=== PATIENT | female | born 1950 | race American Indian/Alaskan Native ===

== ENCOUNTER 2016-06-30 08:01 | Outpatient (CLI) | payer MEDICAID ==
--- NOTE | 2016-06-30 10:17 | Mammography Report ---
BILATERAL DIGITAL SCREENING MAMMOGRAM with CAD : 06/30/16 08:01:00 CLINICAL: Routine screening. COMPARISON:01/12/13 FINDINGS: The breasts are heterogeneously dense, which may obscure small masses.A predominantly fat density mass in the outer right breast is not significantly changed. It has the typical appearance of a benign hamartoma. No other mass, architectural distortion or suspicious calcifications. IMPRESSION: No mammographic evidence of malignancy. BI-RADS CATEGORY: 2 -- Benign RECOMMENDATION: Routine mammographic screening in one year. COMMENT: Patient follow-up letters are generated by our [employer] application.
== END 2016-06-30 08:02 | disposition home or self-care (01) ==
LOC: SPVWC 08:01
PROVIDERS: ATTEND General Practice
DX: Z12.31 Encounter for screening mammogram for malignant neoplasm of breast (principal)
CPT/HCPCS: 77067; G0202

== ENCOUNTER 2021-09-14 20:17 | Inpatient (IN) | payer MEDICARE ==
[2021-09-14] MEDS ORDERED: ONDANSETRON 4 MG/2 ML INJ IV ONE (21:37)
[2021-09-14] MEDS ORDERED: fentaNYL 100 MCG/2 ML INJ IV ONE (21:37)
[2021-09-14] MEDS ORDERED: NITROGLYCERIN 2% OINT 1 GM TP ONE (21:38)
[2021-09-14] MEDS ORDERED: ASPIRIN 325 MG TAB PO ONE (21:38)
--- NOTE | 2021-09-14 21:42 | Emergency Department Report ---
HPI - General Chief Complaint: Chest Pain Time Seen by Provider: 09/14/21 21:29 - [facility] HPI: Room 20 The patient is a 71-year-old female present with chief complaint of chest pain. Patient states symptoms began yesterday with substernal chest pain that is sharp in nature and constant. Patient mitts to shortness of breath, nausea/vomiting and diaphoresis associated with chest pain. Patient currently gives her chest pain a score of 8/10. Patient admits to pleurisy but denies any recent flights/long car trips. Patient states her last stress test occurred over 5 years ago and she's never had a cardiac catheterization ED Past Medical Hx - Past Medical History Hx Diabetes: Yes (Type II) - Surgical History Additional Surgical History: Right ankle fracture repair - Family History Family history: no significant - Social History Smoking Status: Former Smoker (None x10 years) Substance Use Type: Alcohol (Occasional), Marijuana ED Review of Systems ROS: Stated complaint: RICHIE PAIN, NAUSEA, VOMITING Other details as noted in HPI Constitutional: diaphoresis Eyes: denies: eye pain ENT: denies: throat pain Respiratory: shortness of breath Cardiovascular: chest pain Endocrine: no symptoms reported Gastrointestinal: nausea, vomiting Genitourinary: denies: dysuria Musculoskeletal: denies: back pain Neurological: denies: headache Physical Exam - Physical Exam Vital Signs: Vital Signs 09/14/21 21:18 Temperature 98.6 F Pulse Rate 75 Respiratory 16 Rate Blood Pressure 155/89 [Right] O2 Sat by Pulse 99 Oximetry Physical Exam: GENERAL: The patient is well-developed well-nourished female lying on stretcher not appearing to be in acute distress but holding emesis bag with small amount of emesis present HEENT: Normocephalic. Atraumatic. Extraocular motions are intact. Patient has moist mucous membranes. NECK: Supple. Trachea midline CHEST/LUNGS: Clear to auscultation. There is no respiratory distress noted. HEART/CARDIOVASCULAR: Regular. There is no tachycardia. There is no gallop rub or murmur. ABDOMEN: Abdomen is soft, nontender. Patient has normal bowel sounds. There is no abdominal distention. SKIN: There is no rash. There is no edema. There is no diaphoresis. NEURO: The patient is awake, alert, and oriented. The patient is cooperative. The patient has no focal neurologic deficits. The patient has normal speech. GCS 15 MUSCULOSKELETAL: There is no evidence of acute injury. ED Course Vital Signs 09/14/21 21:18 Temperature 98.6 F Pulse Rate 75 Respiratory 16 Rate Blood Pressure 155/89 [Right] O2 Sat by Pulse 99 Oximetry ED Medical Decision Making - Lab Data Result diagrams: 09/14/21 22:26 09/14/21 22:26 - EKG Data -: EKG Interpreted by Mn EKG shows normal: sinus rhythm Rate: normal - EKG Data When compared to previous EKG there are: previous EKG unavailable Interpretation: nonspecific ST-T wave lidia (Flattened T waves leads III, V2) - Radiology Data Radiology results: report reviewed (CT chest), image reviewed (CT chest) [facility] [address] [place] [address] Cat Scan Report Signed Patient: KATERINE DOWNEY MR#: [id number] : 1950 Acct:[id number] Age/Sex: 71 / F ADM Date: 09/14/21 Loc: ED Attending Dr: Ordering Physician: FLORENCIO EDOUARD MD Date of Service: 09/14/21 Procedure(s): CT angio chest Accession Number(s): [id number] cc: FLORENCIO EDOUARD MD CT angio chest INDICATION / CLINICAL INFORMATION: Chest pain. TECHNIQUE: Axial CT images were obtained through the chest after injection of 100 cc of Omnipaque 350 IV contrast. 3 plane MIP and/or 3D reconstructions were produced. All CT scans at this location are performed using CT dose reduction for ALARA by means of automated exposure control. COMPARISON: None available. FINDINGS: PULMONARY ARTERIES: No central or segmental pulmonary embolus. THORACIC AORTA: No significant abnormality. HEART: No significant abnormality. CORONARY ARTERY CALCIFICATION: No significant calcification. LYMPHADENOPATHY: No significant thoracic lymphadenopathy. LUNGS/PLEURA: No acute interstitial or airspace disease. No pleural effusion or pneumothorax. OTHER FINDINGS: There is fluid extending to the mid thoracic esophagus. No significant wall thickening. UPPER ABDOMEN: No acute findings. SKELETAL SYSTEM: No acute osseous findings. IMPRESSION: 1. No acute findings in the chest. No evidence of pulmonary embolism. 2. Fluid in the mid to distal esophagus, nonspecific but may reflect gastroesophageal reflux or esophageal dysmotility. Signer Name: Daja Escalante MD Signed: 09/15/2021 3:09 AM Workstation Name: [id number] Transcribed By: JS Dictated By: DAJA ESCALANTE MD Electronically Authenticated By: DAJA ESCALANTE MD Signed Date/Time: 09/15/21308 DD/ 3 TD/TT: - Differential Diagnosis ACS, pericarditis, GERD, costochondritis, pleurisy Critical care attestation.: If time is entered above; I have spent that time in minutes in the direct care of this critically ill patient, excluding procedure time. ED Disposition Clinical Impression: Chest pain Disposition: ADMITTED INPATIENT Is pt being admited?: Yes Does the pt Need Aspirin: Yes Condition: Fair Instructions: Nonspecific Chest Pain, Adult Time of Disposition: 03:17 (Care transferred to hospitalist (Dr. Richey)) Heart Score - HEART Score History: Moderately suspicious EKG: Non-specific Age: > 65 Risk factors: 1-2 risk factors Troponin: < normal limit HEART Score: 5 - EKG Read Time Time EKG Completed: 21:18 EKG Read Time: 21:41
[2021-09-14 23:18] LABS: Basophils # (Auto) 0.1 K/mm3 (0.0-0.1); Basophils % (Auto) 0.8 % (0.0-1.8); Eosinophils % (Auto) 0.1 % (0.0-4.3); Hematocrit 42.2 % (30.3-42.9); Hemoglobin 13.8 gm/dl (10.1-14.3); Lymphocytes # (Auto) 0.8 K/mm3 (1.2-5.4); Lymphocytes % (Auto) 8.1 % (13.4-35.0); Mean Corpuscular HGB Conc 33 % (30-34); Mean Corpuscular Volume 94 fl (79-97); Monocytes # (Auto) 0.2 K/mm3 (0.0-0.8); Monocytes % (Auto) 1.6 % (0.0-7.3); Platelet Count 229 K/mm3 (140-440); Red Blood Count 4.51 M/mm3 (3.65-5.03); Red Cell Distribution Width 13.5 % (13.2-15.2)
[2021-09-14 23:23] LABS: Creatine Kinase MB 1.5 ng/mL (0.0-4.0)
[2021-09-14 23:26] LABS: Alanine Aminotransferase 17 units/L (7-56); Albumin 4.4 g/dL (3.9-5); Blood Urea Nitrogen 14 mg/dL (7-17); Calcium 9.8 mg/dL (8.4-10.2); Hemolysis Index 64
[2021-09-14 23:27] LABS: BUN/Creatinine Ratio 23
[2021-09-14] MEDS ORDERED: MORPHINE 4 MG/1 ML INJ IV ONE (23:29)
--- NOTE | 2021-09-15 03:13 | Cat Scan Report ---
CT angio chest INDICATION / CLINICAL INFORMATION: Chest pain. TECHNIQUE: Axial CT images were obtained through the chest after injection of 100 cc of Omnipaque 350 IV contrast. 3 plane MIP and/or 3D reconstructions were produced. All CT scans at this location are performed using CT dose reduction for ALARA by means of automated exposure control. COMPARISON: None available. FINDINGS: PULMONARY ARTERIES: No central or segmental pulmonary embolus. THORACIC AORTA: No significant abnormality. HEART: No significant abnormality. CORONARY ARTERY CALCIFICATION: No significant calcification. LYMPHADENOPATHY: No significant thoracic lymphadenopathy. LUNGS/PLEURA: No acute interstitial or airspace disease. No pleural effusion or pneumothorax. OTHER FINDINGS: There is fluid extending to the mid thoracic esophagus. No significant wall thickenin g. UPPER ABDOMEN: No acute findings. SKELETAL SYSTEM: No acute osseous findings. IMPRESSION: 1. No acute findings in the chest. No evidence of pulmonary embolism. 2. Fluid in the mid to distal esophagus, nonspecific but may reflect gastroesophageal reflux or esoph ageal dysmotility. Signer Name: Karan Escalante MD Signed: 09/15/2021 3:09 AM Workstation Name: [id number]
[2021-09-15] MEDS ORDERED: fentaNYL 100 MCG/2 ML INJ IV ONE (03:21)
[2021-09-15] MEDS ORDERED: SODIUM CHLORIDE 0.45% 1000 ML 1,000 ML IV SCH (05:00)
--- NOTE | 2021-09-15 05:04 | History and Physical Report ---
History of Present Illness Date of examination: 09/15/21 Date of admission: 09/15/21 Chief complaint: Chest pain History of present illness: 71-year-old female with history of diabetes was brought to the emergency room because of chest pain. Patient states symptoms began yesterday with substernal chest pain that is sharp in nature and constant. Patient mitts to shortness of breath, nausea/vomiting and diaphoresis associated with chest pain. Patient currently gives her chest pain a score of 8/10. Patient admits to pleurisy but denies any recent flights/long car trips. Patient states her last stress test occurred over 5 years ago and she's never had a cardiac catheterization In the emergency room initial cardiac enzyme is negative troponin is 0.010. Ch est CTA shows no acute finding in the chest. No evidence of pulmonary embolism. Fluid in the mid to distal esophagus, nonspecific but may reflect gastroesophageal reflux or esophageal dysmotility Past History Past Medical History: diabetes Past Surgical History: Other ( Right ankle fracture repair) Social history: other (Former Smoker (None x10 years)) Family history: diabetes Medications and Allergies Allergies Allergy/AdvReac Type Severity Reaction Status Date / Time No Known Allergies Allergy Unverified 09/14/21 21:20 Review of Systems All systems: negative Cardiovascular: chest pain, shortness of breath, dyspnea on exertion Gastrointestinal: nausea, vomiting Exam - Constitutional Vitals: Temp Pulse Resp BP Pulse Ox 98.2 F 69 16 173/95 98 09/15/21 04:44 09/15/21 04:31 09/15/21 04:31 09/15/21 04:31 09/15/21 04:31 General appearance: Present: no acute distress, well-nourished - EENT Eyes: Present: PERRL ENT: hearing intact, clear oral mucosa - Neck Neck: Present: supple, normal ROM - Respiratory Respiratory effort: normal Respiratory: bilateral: CTA - Cardiovascular Heart Sounds: Present: S1 & S2. Absent: rub, click - Extremities Extremities: pulses symmetrical, No edema Peripheral Pulses: within normal limits - Abdominal General gastrointestinal: Present: soft, non-tender, non-distended, normal bowel sounds Female genitourinary: Present: normal - Integumentary Integumentary: Present: clear, warm, dry - Musculoskeletal Musculoskeletal: gait normal, strength equal bilaterally - Psychiatric Psychiatric: appropriate mood/affect, intact judgment & insight - Neurologic Neurologic: CNII-XII intact, moves all extremities HEART Score - HEART Score EKG: Non-specific Age: > 65 Risk factors: 1-2 risk factors Troponin: Troponin T < 0.010 ng/mL (0.00-0.029) 09/14/21: Troponin: < normal limit Results - Labs CBC & Chem 7: 09/14/21 22:26 09/14/21 22: Labs: Laboratory Last Values WBC 10.5 K/mm3 (4.5-11.0) 09/14/21 22: RBC 4.51 M/mm3 (3.65-5.03) 09/14/21: Hgb 13.8 gm/dl (10.1-14.3) 09/14/21: Hct 42.2 % (30.3-42.9) 09/14/21: MCV 94 fl (79-97) 09/14/21 22: MCH 31 pg (28-32) 09/14/21: MCHC 33 % (30-34) 09/14/21: RDW 13.5 % (13.2-15.2) 09/14/21: Plt Count 229 K/mm3 (140-440) 09/14/21 22: Lymph % (Auto) 8.1 % (13.4-35.0) L 09/14/21: [place] % (Auto) 1.6 % (0.0-7.3) 09/14/21: Eos % (Auto) 0.1 % (0.0-4.3) 09/14/21: Baso % (Auto) 0.8 % (0.0-1.8) 09/14/21: Lymph # (Auto) 0.8 K/mm3 (1.2-5.4) L 09/14/21: [place] # (Auto) 0.2 K/mm3 (0.0-0.8) 09/14/21 22: Eos # (Auto) 0.0 K/mm3 (0.0-0.4) 09/14/21 22: Baso # (Auto) 0.1 K/mm3 (0.0-0.1) 09/14/21 22:26 Seg Neutrophils % 89.4 % (40.0-70.0) H 09/14/21 22:26 Seg Neutrophils # 9.4 K/mm3 (1.8-7.7) H 09/14/21 22:26 D-Dimer 273.84 ng/mlDDU (0-234) H 09/14/21 22:26 VBG pH 7.349 (7.320-7.420) 09/14/21 22:26 Sodium 145 mmol/L (137-145) 09/14/21 22:26 Potassium 4.0 mmol/L (3.6-5.0) 09/14/21 22:26 Chloride 105.7 mmol/L (98-107) 09/14/21 22:26 Carbon Dioxide 26 mmol/L (22-30) 09/14/21 22:26 Anion Gap 17 mmol/L 09/14/21 22:26 BUN 14 mg/dL (7-17) 09/14/21 22: Creatinine 0.6 mg/dL (0.6-1.2) 09/14/21 22:26 Estimated GFR > 60 ml/min 09/14/21 22:26 BUN/Creatinine Ratio 23 % 09/14/21 22:26 Glucose 228 mg/dL (65-100) H 09/14/21 22:26 Calcium 9.8 mg/dL (8.4-10.2) 09/14/21 22: Total Bilirubin 0.40 mg/dL (0.1-1.2) 09/14/21 22:26 AST 17 units/L (5-40) 09/14/21 22:26 ALT 17 units/L (7-56) 09/14/21 22:26 Alkaline Phosphatase 72 units/L (35-129) 09/14/21 22:26 Total Creatine Kinase 90 units/L (30-135) 09/14/21 22:26 CK-MB (CK-2) 1.5 ng/mL (0.0-4.0) 09/14/21 22: CK-MB (CK-2) Rel Index 1.6 (0-4) 09/14/21 22: Troponin T < 0.010 ng/mL (0.00-0.029) 09/14/21 22:26 NT-Pro-B Natriuret Pep 259.7 pg/mL (0-900) 09/14/21 22:26 Total Protein 8.0 g/dL (6.3-8.2) 09/14/21 22:26 Albumin 4.4 g/dL (3.9-5) 09/14/21 22:26 Albumin/Globulin Ratio 1.2 % 09/14/21 22:26 Lipase 17 units/L (13-60) 09/14/21 22:26 - Imaging and Cardiology CT scan - chest: report reviewed Assessment and Plan VTE prophylaxis?: Chemical Plan of care discussed with patient/family: Yes - Patient Problems (1) ACS (acute coronary syndrome) Current Visit: Yes Status: Acute Plan to address problem: Admit the patient to the medical telemetry. Aspirin 325 mg p.o. daily. Lipitor 40 mg p.o. daily. Nitroglycerin as needed. Serial cardiac enzymes. Lexiscan. Cardiology evaluation (2) GERD (gastroesophageal reflux disease) Current Visit: Yes Status: Acute Plan to address problem: Protonix 40 mg p.o. daily. Outpatient follow-up with GI for further evaluation (3) Diabetes 1.5, managed as type 2 Current Visit: Yes Status: Acute Plan to address problem: Accu-Chek every 6 hours with Humalog moderate dose coverage. Diabetic education. Recheck BMP in the morning (4) DVT prophylaxis Current Visit: Yes Status: Acute Plan to address problem: Heparin 5000 units subcu every 12 hours for DVT prophylaxis. Protonix 40 mg p.o. daily for GI prophylaxis. Patient is a full code
[2021-09-15] MEDS ORDERED: traMADol 50 MG TAB PO PRN (06:00)
[2021-09-15] MEDS ORDERED: ACETAMINOPHEN 325 MG TAB PO PRN (06:00)
[2021-09-15] MEDS ORDERED: DEXTROSE 50% IN WATER (25GM) 50 ML SYRINGE IV PRN (06:00)
[2021-09-15] MEDS ORDERED: INSULIN LISPRO 100 UNIT/ML SUB-Q SCH (06:00)
[2021-09-15] MEDS ORDERED: NITROGLYCERIN 0.4 MG TAB SUBL SL PRN (06:00)
[2021-09-15] MEDS ORDERED: MORPHINE 4 MG/1 ML INJ IV PRN (06:00)
[2021-09-15] MEDS ORDERED: HYDROmorphone 1 MG/1 ML INJ IV NR (06:58)
[2021-09-15] MEDS ORDERED: REGADENOSON 0.4 MG/5 ML INJ IV ONE (07:35)
[2021-09-15] MEDS ORDERED: ONDANSETRON 4 MG/2 ML INJ IV NR (09:40)
[2021-09-15] MEDS ORDERED: PANTOPRAZOLE 40 MG TAB PO SCH (10:00)
[2021-09-15] MEDS ORDERED: HEPARIN 5,000 UNIT/1 ML VIAL SUB-Q SCH (10:00)
[2021-09-15] MEDS ORDERED: ENOXAPARIN 30 MG/0.3 ML INJ SUB-Q SCH (10:00)
[2021-09-15] MEDS: ENOXAPARIN 40 MG/0.4 ML INJ SUB-Q SCH (10:36)
[2021-09-15] MEDS ORDERED: ONDANSETRON 4 MG/2 ML INJ IV PRN (11:04)
[2021-09-15] MEDS ORDERED: LISINOPRIL 20 MG TAB PO SCH (11:05)
[2021-09-15] MEDS: METOPROLOL TARTRATE 50 MG TAB PO SCH ×2 (13:22→22:14)
[2021-09-15] MEDS: LISINOPRIL 20 MG TAB PO SCH (13:22)
[2021-09-15] MEDS: INSULIN LISPRO 100 UNIT/ML SUB-Q SCH ×3 (13:23→22:15)
[2021-09-15] MEDS ORDERED: DEXTROSE 5% IN WATER 1,000 ML IV SCH (14:30)
--- NOTE | 2021-09-15 15:08 | Consultation ---
History of Present Illness Consult date: 09/15/21 Requesting physician: SUNNY MACIAS Consult reason: other (acs) History of present illness: Patient is 71-year-old female with a past medical history of diabetes and hypertension who came to the ED for complaint of chest pain and nausea and vomiting which started yesterday. At time of interview patient unable to describe nature or quality of chest pain and just reports that it is constant and does not describe any aggravating or relieving factors. She further reports that she has been very nauseous and vomiting. She does report history of GERD and pancreatitis. Initial cardiac enzymes are negative and CT shows fluid in the mid to distal esophagus which may reflect GERD or esophageal dysmotility. Patient is previously unknown to our practice. Cardiology is consulted for ACS. Past History Past Medical History: diabetes, hypertension Past Surgical History: Other ( Right ankle fracture repair) Social history: other (Former Smoker (None x10 years)) Family history: diabetes Medications and Allergies Allergies Allergy/AdvReac Type Severity Reaction Status Date / Time No Known Allergies Allergy Unverified 09/14/21 21:20 Home Medications Medication Instructions Recorded Confirmed Last Taken Type Loratadine [Claritin] 10 mg PO DAILY 09/15/21 09/15/21 Unknown History Metformin HCl [metFORMIN] 1,000 mg PO DAILY 09/15/21 09/15/21 Unknown History Omeprazole 40 mg PO DAILY 09/15/21 09/15/21 Unknown History Rosuvastatin Calcium [Crestor] 10 mg PO DAILY 09/15/21 09/15/21 Unknown History lisinopriL [Lisinopril] 20 mg PO DAILY 09/15/21 09/15/21 Unknown History Active Meds: Active Medications Acetaminophen (Acetaminophen 325 Mg Tab) 650 mg PO Q6H PRN PRN Reason: Pain, Mild (1-3) Aspirin (Aspirin Ec 81 Mg Tab) 81 mg PO QDAY RABIA Atorvastatin Calcium (Atorvastatin 40 Mg Tab) 40 mg PO QHS RABIA Atorvastatin Calcium (Atorvastatin 20 Mg Tab) 20 mg PO QHS RABIA Dextrose (Dextrose 50% In Water (25gm) 50 Ml Syringe) 50 ml IV Q30MIN PRN; Pro tocol PRN Reason: Hypoglycemia Enoxaparin Sodium (Enoxaparin 40 Mg/0.4 Ml Inj) 40 mg SUB-Q QDAY@1000 RABIA Last Admin: 09/15/21 10:36 Dose: 40 mg Dextrose (D5w) 1,000 mls @ 75 mls/hr IV DIRECT [facility] Insulin Human Lispro (Insulin Lispro 100 Unit/Ml) 0 unit SUB-Q ACHS [facility]; Protocol Last Admin: 09/15/21 13:23 Dose: 3 unit Lisinopril (Lisinopril 20 Mg Tab) 40 mg PO DAILY [facility] Last Admin: 09/15/21 13:22 Dose: 40 mg Metoprolol Tartrate (Metoprolol Tartrate 50 Mg Tab) 50 mg PO BID [facility] Last Admin: 09/15/21 13:22 Dose: 50 mg Morphine Sulfate (Morphine 4 Mg/1 Ml Inj) 2 mg IV Q5MIN PRN PRN Reason: Chest Pain unrelieved by NTG Nitroglycerin (Nitroglycerin 0.4 Mg Tab Subl) 0.4 mg SL Q5M PRN PRN Reason: Chest Pain Last Admin: 09/15/21 05:50 Dose: 0.4 mg Ondansetron HCl (Ondansetron 4 Mg/2 Ml Inj) 4 mg IV Q8H [facility] Pantoprazole Sodium (Pantoprazole 40 Mg Inj) 40 mg IV BID [facility] Sodium Chloride (Sodium Chloride 0.9% 10 Ml Flush Syringe) 10 ml IV PRN PRN PRN Reason: LINE FLUSH Tramadol HCl (Tramadol 50 Mg Tab) 50 mg PO Q6H PRN PRN Reason: Pain, Moderate (4-6) Review of Systems Constitutional: no weight loss, no weight gain Ears, nose, mouth and throat: no sinus pressure, no sinus pain Cardiovascular: chest pain, no shortness of breath, no dyspnea on exertion Respiratory: no shortness of breath, no dyspnea on exertion Gastrointestinal: nausea, vomiting, no abdominal pain, no diarrhea Musculoskeletal: no neck stiffness, no neck pain Integumentary: no rash, no pruritis, no redness Neurological: no head injury, no transient paralysis, no paralysis Psychiatric: no anxiety, no memory loss Endocrine: no cold intolerance, no heat intolerance Physical Examination Vital Signs Temp Pulse Resp BP Pulse Ox 98.6 F 75 16 155/89 99 09/14/21 21:18 09/14/21 21:18 09/14/21 21:18 09/14/21 21:18 09/14/21 21:18 General appearance: no acute distress Neck: Positive: trachea midline Cardiac: Positive: Reg Rate and Rhythm Lungs: Positive: Normal Breath Sounds Neuro: Positive: Grossly Intact Abdomen: Positive: Soft Skin: Negative: Rash, Suspicious Lesions, Ulceration Extremities: Present: upper extr. pulses. Absent: edema Results 09/14/21 22:26 09/14/21 22:26 Cardiac Enzymes 09/14/21 09/14/21 Range/Units 22:26 22:26 AST 17 (5-40) units/L CK-MB (CK-2) 1.5 (0.0-4.0) ng/mL CBC 09/14/21 Range/Units 22:26 WBC 10.5 (4.5-11.0) K/mm3 RBC 4.51 (3.65-5.03) M/mm3 Hgb 13.8 (10.1-14.3) gm/dl Hct 42.2 (30.3-42.9) % Plt Count 229 (140-440) K/mm3 Lymph # (Auto) 0.8 L (1.2-5.4) K/mm3 [place] # (Auto) 0.2 (0.0-0.8) K/mm3 Eos # (Auto) 0.0 (0.0-0.4) K/mm3 Baso # (Auto) 0.1 (0.0-0.1) K/mm3 Comprehensive Metabolic Panel 09/14/21 Range/Units 22:26 Sodium 145 (137-145) mmol/L Potassium 4.0 (3.6-5.0) mmol/L Chloride 105.7 (98-107) mmol/L Carbon Dioxide 26 (22-30) mmol/L BUN 14 (7-17) mg/dL Creatinine 0.6 (0.6-1.2) mg/dL Glucose 228 H (65-100) mg/dL Calcium 9.8 (8.4-10.2) mg/dL AST 17 (5-40) units/L ALT 17 (7-56) units/L Alkaline Phosphatase 72 (35-129) units/L Total Protein 8.0 (6.3-8.2) g/dL Albumin 4.4 (3.9-5) g/dL - Imaging and Cardiology Echo: pending EKG interpretations - Telemetry EKG Rhythm: Sinus Rhythm - EKG Sinus rhythms and dysrhythmias: sinus rhythm Assessment and Plan Patient is 71-year-old female with a past medical history of diabetes and hypertension who came to the ED for complaint of chest pain and nausea and vomiting which started yesterday Atypical chest pain Hypertension Nausea vomiting GERD Diabetes Plan: EKG shows sinus rhythm with no acute ischemic changes. Troponins negative times 1 repeat cardiac enzyme pending Echo pending Patient for stress test this a.m. preliminary report shows mild defect. Recommend medical management. Final report pending Will initiate metoprolol 50 mg p.o. twice daily and increase to lisinopril 40 mg p.o. daily due to hypertension Continue aspirin and atorvastatin Discussed plan of care with patient and patient's family member who is at bedside who agreed with conservative management at this Suspect pain, nausea, and vomiting due to GI issues will defer to primary team Patient seen in conjunction with Dr. Cedeño who agrees with this plan of care - Patient Problems (1) HTN (hypertension) Current Visit: Yes Status: Acute (2) Nausea & vomiting Current Visit: Yes Status: Acute (3) Diabetes 1.5, managed as type 2 Current Visit: Yes Status: Acute (4) GERD (gastroesophageal reflux disease) Current Visit: Yes Status: Acute
--- NOTE | 2021-09-15 15:25 | Event Note ---
Date: 09/15/21 #Acute coronary syndromeruled out Status post aspirin 325 mg x 1 in the ED. Continue aspirin 81 mg daily. Cardiology; appreciate recs. Unremarkable myocardial perfusion scan (09/15/2021). Starting metoprolol tartrate 50mg twice daily. Continue to monitor #GERD #Nausea and vomiting Increasing home pantoprazole to 40 mg twice daily. Scheduling IV Zofran 4 mg every 8 hours for nausea and vomiting. Starting IV Zofran 4mg every 8hours. #Non-insulin dependent type II diabetes mellitus - hemoglobin A1c: Unknown - home regimen: Metformin 1000 mg daily - current regimen: Moderate SSI. Holding metformin in the setting of recent contrast for myocardial perfusion scan. Can restart prior to discharge. - blood glucose goal 140-180 while inpatient - continue to monitor #Obesity #Weight loss counseling #Exercise counseling - BMI 32.4 - Counseled patient on the importance of weight loss, incorporating exercise, and dietary changes (lean meats, fresh fruits and vegetables, and water intake). Patient expresses understanding. - Time: +15 min #Coordination of CARE time: 30 minutes. Total visit time equals 30 or more minutes with greater than 50% spent [id number] on coordination of care and counseling. #Advanced care planning -Disease education conducted, care plan discussed, diagnoses discussed, prognosis discussed, and patient acknowledges understanding with care plan -Time: +30 min
[2021-09-15] MEDS: ONDANSETRON 4 MG/2 ML INJ IV SCH (15:28)
[2021-09-15] MEDS ORDERED: PANTOPRAZOLE 40 MG INJ IV SCH (22:00)
[2021-09-16] MEDS: ONDANSETRON 4 MG/2 ML INJ IV SCH ×2 (00:29→09:36)
[2021-09-16 06:36] LABS: Basophils # (Auto) 0.1 K/mm3 (0.0-0.1); Basophils % (Auto) 0.6 % (0.0-1.8); Hematocrit 43.3 % (30.3-42.9); Hemoglobin 14.5 gm/dl (10.1-14.3); Lymphocytes # (Auto) 1.4 K/mm3 (1.2-5.4); Lymphocytes % (Auto) 10.6 % (13.4-35.0); Mean Corpuscular HGB Conc 34 % (30-34); Mean Corpuscular Volume 93 fl (79-97); Monocytes # (Auto) 0.7 K/mm3 (0.0-0.8); Monocytes % (Auto) 5.4 % (0.0-7.3); Platelet Count 231 K/mm3 (140-440); Red Blood Count 4.68 M/mm3 (3.65-5.03); Red Cell Distribution Width 13.4 % (13.2-15.2)
[2021-09-16 06:56] LABS: BUN/Creatinine Ratio 20; Blood Urea Nitrogen 16 mg/dL (7-17); Calcium 9.7 mg/dL (8.4-10.2); Hemolysis Index 16
[2021-09-16] MEDS ORDERED: POTASSIUM CHLORIDE ER 20 MEQ TAB PO NR (08:07)
[2021-09-16] MEDS ORDERED: INSULIN REGULAR, HUMAN 100 UNITS/1 ML SUB-Q NR (08:08)
[2021-09-16] MEDS ORDERED: SCOPOLAMINE TRANSDERMAL PATCH 72 HR TD NR (08:25)
[2021-09-16] MEDS ORDERED: PROMETHAZINE 25 MG RECT SUPP PR NR (08:31)
[2021-09-16] MEDS: INSULIN LISPRO 100 UNIT/ML SUB-Q SCH ×4 (09:33→22:00)
[2021-09-16] MEDS ORDERED: ASPIRIN EC 325 MG TAB PO SCH ×2 (10:00)
[2021-09-16] MEDS ORDERED: NON-FORMULARY EACH (Rosuvastatin Calcium [Crestor] 10 MG Tablet) PO SCH (10:00)
[2021-09-16] MEDS ORDERED: ONDANSETRON 4 MG ODT TAB PO PRN (10:00)
[2021-09-16] MEDS: METOPROLOL TARTRATE 50 MG TAB PO SCH ×2 (10:56→22:28)
[2021-09-16] MEDS: ASPIRIN EC 81 MG TAB PO SCH (10:56)
[2021-09-16] MEDS: LISINOPRIL 20 MG TAB PO SCH (10:56)
[2021-09-16] MEDS: ENOXAPARIN 40 MG/0.4 ML INJ SUB-Q SCH (10:57)
[2021-09-16] MEDS: PANTOPRAZOLE 40 MG TAB PO SCH ×2 (10:57→17:12)
--- NOTE | 2021-09-16 10:57 | Electrocardiograph Report ---
[facility] Test Date: 2021-09-14 Test Time: 21:18:13 Pat Name: KATERINE DOWNEY Department: Room: A477 1 Gender: F Data Typist: DOTTY : 1950 Requested By: FLORENCIO EDOUARD Order Number: [id number] Reading MD: Reid Cedeño Measurements Intervals [place] Rate: 62 P: 49 NE: 152 QRS: 10 QRSD: 72 T: 31 QT: 411 QTc: 419 Interpretive Statements Sinus rhythm No previous ECG available for comparison Electronically Signed On 09-16-2021 10:57:15 EDT by Reid Cedeño
--- NOTE | 2021-09-16 11:08 | Electrocardiograph Report ---
[facility] Test Date: 2021-09-15 Test Time: 08:36:19 Pat Name: KATERINE DOWNEY Department: Room: A477 1 Gender: F Shank Skinner: FAMILIA : 1950 Requested By: SUNNY MACIAS Order Number: [id number] Reading MD: Reid Cedeño Measurements Intervals [place] Rate: 59 P: 53 AK: 140 QRS: 30 QRSD: 89 T: 37 QT: 428 QTc: 425 Interpretive Statements Sinus arrhythmia Compared to ECG 09/14/2021 21:18:13 no significant change noted. Electronically Signed On 09-16-2021 11:08:17 EDT by Reid Cedeño
--- NOTE | 2021-09-16 11:47 | Nuclear Medicine Report ---
APPROVED REPORT Exam: Nuclear Stress Test Indication: Chest pain [facility] Ht: 4 ft 10 in Wt: 154 lbs BSA: 1.63 m2 HR: 64 bpmBP: 169/89 mmHgBMI: 32.18 Rhythm: Sinus Rhythm w/ Sinus Arrhythmia Stress Test Details Stress Test: Pharmacologic stress testing performed using 0.4 mg of regadenoson per 5 mL given IV over 10 seconds. Reason for pharmacologic stress test: physical limitation. HR Resting HR: 67 bpm Max HR Achieved: 126 bpm Max Heart Rate (APMHR): 151 bpm Target HR (85% APMHR): 128 bpm % of APMHR: 83 Recovery HR: 103 bpm HR response to stress: Normal HR response to stress BP Resting BP: 151/87 mmHg Max BP: 194/115 mmHg Recovery BP: 169/89 mmHg BP response to stress: Abnormal hypertensive response to stress. ECG Resting ECG: Sinus Rhythm Stress ECG: Sinus Tachycardia ST Change: Upsloping ST depression Maximum ST Deviation: 0.5 mm Arrhythmia: None Recovery ECG: Sinus Tachycardia Recovery ST Change: Upsloping ST depression,improved in mid recovery. Recovery ST Deviation: 0.5 mm Recovery Arrhythmia: None Clinical Reason for Termination: Completed protocol Stress Symptoms: None Stress ECG Conclusion EKG showed S.R with mild ST upgoingdepressions in inferolateral leads,post vasodilation.Improved in recovery. NM EXAM: Myocardial Perfusion REST/STRESS Resting Data Rest SPECT myocardial perfusion imaging was performed in supine position 45 minutes following the intravenous injection of 10 mCi of Tc-99m Myoview. Time of rest injection: 0700 Date: 09/15/2021 Pharmacologic Stress Pharmacologic stress test was performed by injecting Regadenoson 0.4 mg IV push followed by the intravenous injection of 28 mCi of Tc-99m Myoview. Time of stress injection: 1000 Date: 09/15/2021 Gated Stress SPECT was performed 30 minutes after stress injection. The images were gated to evaluate regional wall motion and calculate left ventricular ejection fraction. Study Data TID = 1.28. Perfusion Wall Motion Normal wall motion with LVEF post vasodilation ,calculated to be 84%. Nuclear Conclusion ECG Findings: equivocal Clinical Findings: negative for ischemia Nuclear Findings: positive for ischemia Exercise Capacity: not assessed Left Ventricular Function: normal Risk Study: moderate Abnormal study. Scintigraphic evidence for mild apical anteroseptal ischemia,small area,can beartifactual considering normal wall motion. Conclusion EKG showed S.R with mild ST upgoingdepressions in inferolateral leads,post vasodilation.Improved in recovery.
[2021-09-16] MEDS ORDERED: PROMETHAZINE 25 MG RECT SUPP PR SCH (13:00)
[2021-09-16] MEDS ORDERED: PROMETHAZINE 50 MG RECT SUPP PR ONE (13:00)
--- NOTE | 2021-09-16 14:00 | Progress Note ---
Assessment and Plan Assessment and plan: #Acute coronary syndromeruled out Status post aspirin 325 mg x 1 in the ED. Continue aspirin 81 mg daily. Cardiology; appreciate recs. Unremarkable myocardial perfusion scan (09/15/2021). Continue metoprolol tartrate 50mg twice daily. Continue to monitor #GERD #Nausea and vomiting Continue p.o. pantoprazole to 40 mg twice daily. Discontinued Zofran as it appeared to be ineffective. Starting Phenergan suppository 25 mg each. Continue to monitor for clinical improvement. Increased clinical suspicion for enteritis versus COVID-19 infection. #Hypokalemia Potassium 3.5 Repleted. Monitor with repeat BMP tomorrow. #Non-insulin dependent type II diabetes mellitus - hemoglobin A1c: Unknown - home regimen: Metformin 1000 mg daily - current regimen: Moderate SSI. Holding metformin in the setting of recent contrast for myocardial perfusion scan. Can restart prior to discharge. - blood glucose goal 140-180 while inpatient - continue to monitor #Obesity #Weight loss counseling #Exercise counseling - BMI 32.4 - Counseled patient on the importance of weight loss, incorporating exercise, and dietary changes (lean meats, fresh fruits and vegetables, and water intake). Patient expresses understanding. - Time: +15 min #Advanced care planning -Disease education conducted, care plan discussed, diagnoses discussed, prognosis discussed, and patient acknowledges understanding with care plan -Time: +30 min #Discharge planning - Patient is pending ability to tolerate p.o. intake - Case management has been made aware. - Discharge is tentatively 24 hours Disposition Plan: Continue medical management Total Time Spent with Patient (Minutes): 45 minutes History Interval history: Patient continues to endorse nausea and vomiting with inability to tolerate p.o. intake. Hospitalist Physical - Constitutional Vitals: Temp Pulse Resp BP Pulse Ox 98.6 F 60 16 139/69 97 09/16/21 07:58 09/16/21 12:00 09/16/21 07:58 09/16/21 07:58 09/16/21 12:00 General appearance: Present: no acute distress, well-nourished - EENT Eyes: Present: PERRL, EOM intact ENT: hearing intact, clear oral mucosa, dentition normal - Neck Neck: Present: supple, normal ROM - Respiratory Respiratory effort: normal Respiratory: bilateral: CTA - Cardiovascular Rhythm: regular Heart Sounds: Present: S1 & S2 - Extremities Extremities: no ischemia, pulses intact, pulses symmetrical, No edema, normal temperature, normal color Peripheral Pulses: within normal limits - Abdominal General gastrointestinal: soft, non-tender, non-distended, normal bowel sounds - Integumentary Integumentary: Present: clear, warm, dry - Psychiatric Psychiatric: appropriate mood/affect, cooperative, other (Limited insight regarding medical condition) - Neurologic Neurologic: CNII-XII intact, moves all extremities - Allied Health Allied health notes reviewed: nursing HEART Score - HEART Score EKG: Non-specific Age: > 65 Risk factors: 1-2 risk factors Troponin: Troponin T < 0.010 ng/mL (0.00-0.029) 09/16/21 05:43 Troponin: < normal limit Results - Labs CBC & Chem 7: 09/16/21 05:43 09/16/21 05:43 Labs: Laboratory Last Values WBC 13.1 K/mm3 (4.5-11.0) H 09/16/21 05:43 RBC 4.68 M/mm3 (3.65-5.03) 09/16/21 05:43 Hgb 14.5 gm/dl (10.1-14.3) H 09/16/21 05:43 Hct 43.3 % (30.3-42.9) H 09/16/21 05:43 MCV 93 fl (79-97) 09/16/21 05:43 MCH 31 pg (28-32) 09/16/21 05:43 MCHC 34 % (30-34) 09/16/21 05:43 RDW 13.4 % (13.2-15.2) 09/16/21 05:43 Plt Count 231 K/mm3 (140-440) 09/16/21 05:43 Lymph % (Auto) 10.6 % (13.4-35.0) L 09/16/21 05:43 Christian % (Auto) 5.4 % (0.0-7.3) 09/16/21 05:43 Eos % (Auto) 0.0 % (0.0-4.3) 09/16/21 05:43 Baso % (Auto) 0.6 % (0.0-1.8) 09/16/21 05:43 Lymph # (Auto) 1.4 K/mm3 (1.2-5.4) 09/16/21 05:43 Christian # (Auto) 0.7 K/mm3 (0.0-0.8) 09/16/21 05:43 Eos # (Auto) 0.0 K/mm3 (0.0-0.4) 09/16/21 05:43 Baso # (Auto) 0.1 K/mm3 (0.0-0.1) 09/16/21 05:43 Seg Neutrophils % 83.4 % (40.0-70.0) H 09/16/21 05:43 Seg Neutrophils # 10.9 K/mm3 (1.8-7.7) H 09/16/21 05:43 D-Dimer 273.84 ng/mlDDU (0-234) H 09/14/21 22:26 VBG pH 7.349 (7.320-7.420) 09/14/21 22:26 Sodium 142 mmol/L (137-145) 09/16/21 05:43 Potassium 3.5 mmol/L (3.6-5.0) L 09/16/21 05:43 Chloride 99.4 mmol/L (98-107) 09/16/21 05:43 Carbon Dioxide 25 mmol/L (22-30) 09/16/21 05:43 Anion Gap 21 mmol/L 09/16/21 05:43 BUN 16 mg/dL (7-17) 09/16/21 05:43 Creatinine 0.8 mg/dL (0.6-1.2) 09/16/21 05:43 Estimated GFR > 60 ml/min 09/16/21 05:43 BUN/Creatinine Ratio 20 % 09/16/21 05:43 Glucose 227 mg/dL (65-100) H 09/16/21 05:43 POC Glucose 191 mg/dL (70-105) H 09/16/21 11:46 Calcium 9.7 mg/dL (8.4-10.2) 09/16/21 05:43 Total Bilirubin 0.40 mg/dL (0.1-1.2) 09/14/21 22:26 AST 17 units/L (5-40) 09/14/21 22:26 ALT 17 units/L (7-56) 09/14/21 22:26 Alkaline Phosphatase 72 units/L (35-129) 09/14/21 22:26 Total Creatine Kinase 90 units/L (30-135) 09/14/21 22:26 CK-MB (CK-2) 1.5 ng/mL (0.0-4.0) 09/14/21 22:26 CK-MB (CK-2) Rel Index 1.6 (0-4) 09/14/21 22:26 Troponin T < 0.010 ng/mL (0.00-0.029) 09/16/21 05:43 NT-Pro-B Natriuret Pep 259.7 pg/mL (0-900) 09/14/21 22:26 Total Protein 8.0 g/dL (6.3-8.2) 09/14/21 22: Albumin 4.4 g/dL (3.9-5) 09/14/21 22: Albumin/Globulin Ratio 1.2 % 09/14/21 22: Lipase 17 units/L (13-60) 09/14/21 22:26 Cueto/IV: Voiding Method Toilet Active Medications - Current Medications Current Medications: Generic Name Dose Route Start Last Admin Trade Name Freq PRN Reason Stop Dose Admin Acetaminophen 650 mg 09/15/21 06:00 Acetaminophen 325 Mg Tab PO Q6H PRN Pain, Mild (1-3) Aspirin 81 mg 09/16/21 10:00 09/16/21 10:56 Aspirin Ec 81 Mg Tab PO 81 mg QDAY RABIA Administration Atorvastatin Calcium 20 mg 09/15/21 22:00 09/15/21 22:14 Atorvastatin 20 Mg Tab PO 20 mg QHS RABIA Administration Dextrose 50 ml 09/15/21 06:00 Dextrose 50% In Water (25gm) 50 Ml Syringe IV Q30MIN PRN Hypoglycemia Protocol Enoxaparin Sodium 40 mg 09/15/21 10:00 09/16/21 10:57 Enoxaparin 40 Mg/0.4 Ml Inj SUB-Q 40 mg QDAY@1000 RABIA Administration Insulin Human Lispro 0 unit 09/15/21 11:30 09/16/21 09:33 Insulin Lispro 100 Unit/Ml SUB-Q 3 unit ACHS RABIA Administration Protocol Lisinopril 40 mg 09/15/21 12:02 09/16/21 10:56 Lisinopril 20 Mg Tab PO 40 mg DAILY RABIA Administration Metoprolol Tartrate 50 mg 09/15/21 13:00 09/16/21 10:56 Metoprolol Tartrate 50 Mg Tab PO 50 mg BID RABIA Administration Morphine Sulfate 2 mg 09/15/21 06:00 Morphine 4 Mg/1 Ml Inj IV Q5MIN PRN Chest Pain unrelieved by NTG Nitroglycerin 0.4 mg 09/15/21 06:00 09/15/21 05:50 Nitroglycerin 0.4 Mg Tab Subl SL 0.4 mg Q5M PRN Administration Chest Pain Pantoprazole Sodium 40 mg 09/16/21 09:00 09/16/21 10:57 Pantoprazole 40 Mg Tab PO 40 mg BIDAC RABIA Administration Promethazine HCl 25 mg 09/16/21 13:00 Promethazine 25 Mg Rect Supp MT 09/16/21 16:00 ONCE@1300 RABIA Scopolamine 1 each 09/16/21 08:25 09/16/21 10:56 Scopolamine Transdermal Patch 72 Hr TD 09/16/21 23:00 1 each ONCE NR Administration Sodium Chloride 10 ml 09/15/21 06:00 Sodium Chloride 0.9% 10 Ml Flush Syringe IV PRN PRN LINE FLUSH Tramadol HCl 50 mg 09/15/21 06:00 Tramadol 50 Mg Tab PO Q6H PRN Pain, Moderate (4-6) Nutrition/Malnutrition Assess - Dietary Evaluation Nutrition/Malnutrition Findings: Nutrition Notes Start: 09/15/21 15:22 Freq: Status: Active Protocol: Document 09/15/21 15:22 ROSCOE (Rec: 09/15/21 15:29 ROSCOE [id number]) Nutrition Notes Need for Assessment generated from: MD Order,Education Initial or Follow up Brief Note Current Diagnosis Diabetes,Hypertension Other Pertinent Diagnosis Chest Pain/N/V, ACS, GERD. Current Diet Cardiac Diet (since L 09/15). Height 4 ft 10 in Weight 70.307 kg Wood Body Weight (kg) 40.90 BMI 32.3 Intake Prior to Admission Good Weight change and time frame Pt denies having loss body weight PL [employer]. Weight Status Obese Subjective/Other Information RD consult for nutrition education assessment. No reports available on Pt's PO intake of meals at the time , will assess at F/U. Pt isd on Room Air, O2 saturation @ 94%, according to Physical Assessment history notes. Pt still in critical condition , not a candidate for Nutrition Education at the time, will assess feasibility on F/U. Percent of energy/protein needs met: Prescribed Cardiac Diet provides for energy/protein needs (2,230 Kcal/85 g) during LOS. Nutrition Intervention Follow-Up By: 09/22/21 Additional Comments Nutrition education will be provided at F/U, if feasible. Continue monitoring food tolerance, %PO intake of meals , and BM.
--- NOTE | 2021-09-16 15:07 | Progress Note ---
Assessment and Plan Patient is 71-year-old female with a past medical history of diabetes and hypertension who came to the ED for complaint of chest pain and nausea and vomiting which started yesterday Atypical chest pain Hypertension Nausea vomiting GERD Diabetes Echo 09/15/2021-EF 55 to 60%. Mild diastolic dysfunction is present impaired relaxation pattern. Right ventricle is normal in size. Right ventricle systolic function is normal. No pericardial effusion Lexiscan MPI stress test 09/15/2021-scintigraphic apical anterior septal ischemia small area can be artifactual considering Plan: Patient is chest pain free Contiue metoprolol 50 mg p.o. twice daily and increase to lisinopril 40 mg p.o. daily Continue aspirin and atorvastatin Discussed plan of care with patient and patient's family member who is at bedside who agreed with conservative management at this Suspect pain, nausea, and vomiting due to GI issues will defer to primary team Cardiac status appears otherwise stable will see as needed Patient seen in conjunction with Dr. Cedeño who agrees with this plan of care - Patient Problems (1) HTN (hypertension) Current Visit: Yes Status: Acute (2) Nausea & vomiting Current Visit: Yes Status: Acute (3) Diabetes 1.5, managed as type 2 Current Visit: Yes Status: Acute (4) GERD (gastroesophageal reflux disease) Current Visit: Yes Status: Acute Subjective Date of service: 09/16/21 Principal diagnosis: Nausea vomit Interval history: Patient sitting in chair in no acute distress. Patient reports no chest pain however patient does report she is still nauseous with vomiting Sinus 60s 70s on monitor with no events Objective Vital Signs Temp Pulse Resp BP Pulse Ox 09/16/21 12:00 60 97 09/16/21 07:58 98.6 F 63 16 139/69 95 09/16/21 03:29 98.9 F 68 18 153/89 99 09/15/21 22:55 98.4 F 61 18 168/82 96 09/15/21 19:12 98.7 F 72 16 154/83 96 09/15/21 19:00 98 09/15/21 16:15 98.3 F 66 149/71 96 - Physical Examination General: No Apparent Distress Neck: Positive: trachea midline Cardiac: Positive: Reg Rate and Rhythm Lungs: Positive: Normal Breath Sounds Neuro: Positive: Grossly Intact Abdomen: Positive: Soft Skin: Negative: Rash, Suspicious Lesions, Ulceration Extremities: Present: upper extr. pulses. Absent: edema - Labs and Meds CBC 09/16/21 Range/Units 05:43 WBC 13.1 H (4.5-11.0) K/mm3 RBC 4.68 (3.65-5.03) M/mm3 Hgb 14.5 H (10.1-14.3) gm/dl Hct 43.3 H (30.3-42.9) % Plt Count 231 (140-440) K/mm3 Lymph # (Auto) 1.4 (1.2-5.4) K/mm3 Karnes # (Auto) 0.7 (0.0-0.8) K/mm3 Eos # (Auto) 0.0 (0.0-0.4) K/mm3 Baso # (Auto) 0.1 (0.0-0.1) K/mm3 Comprehensive Metabolic Panel 09/16/21 Range/Units 05:43 Sodium 142 (137-145) mmol/L Potassium 3.5 L (3.6-5.0) mmol/L Chloride 99.4 (98-107) mmol/L Carbon Dioxide 25 (22-30) mmol/L BUN 16 (7-17) mg/dL Creatinine 0.8 (0.6-1.2) mg/dL Glucose 227 H (65-100) mg/dL Calcium 9.7 (8.4-10.2) mg/dL - Imaging and Cardiology Exercise stress test: report reviewed Echo: report reviewed - Telemetry EKG Rhythm: Sinus Rhythm - EKG Sinus rhythms and dysrhythmias: sinus rhythm
--- NOTE | 2021-09-17 07:54 | Discharge Summary ---
Providers - Providers Date of Admission: 09/15/21 04:56 Date of discharge: 09/17/21 Attending physician: FIDELINA LOPEZ MD 09/15/21 Consult to Cardiac Rehabilitation [CONS] Routine Reason For Exam: Phase I 09/15/21 04:58 Consult to Dietitian/Nutrition [CONS] Routine Physician Instructions: Reason For Exam: Reason for Consult: Diet education Consult to Physician [CONS] Routine Comment: Consulting Provider: ANGÉLICA LOZANO Physician Instructions: Reason For Exam: acs Primary care physician: [employer] Hospitalization Reason for admission: Acute coronary syndromeruled out Condition: Fair Pertinent studies: Reviewed. Procedures: Myocardial perfusion scanunremarkable Hospital course: Patient is a 71-year-old female past medical history of [id number] type 2 diabetes mellitus, hypertension, GERD who presented to the ED with complaints of chest pain described as burning, nausea, and vomiting which started 1 day prior to presentation. Patient was unable to provide additional information regarding the type of pain when asked further questions. In the ED, the patient was found to be hemodynamically stable. She had negative troponins x2. Her EKG was relatively unremarkable. Patient also underwent CT angio chest that was unremarkable for pulmonary embolism. Cardiology was consulted for further management. Patient underwent myocardial perfusion scan that revealed "normal wall motion with LVEF post vasodilation calculated to be 84%". Patient was initiated on beta-blockade and monitored overnight. Patient continued to describe burning chest pain in the epigastric region significant for GERD. The patient's PPI was increased to twice daily and she was started on antiemetics for her nausea and vomiting. Patient was also initiated on a scopolamine patch and Phenergan suppositories with moderate relief. Patient was found to be negative for coronavirus. Patient was counseled about the high likelihood that she has gastroenteritis in addition to substantial GERD. Patient was counseled to continue taking antiemetics and attempting a p.o. intake. Patient is medically clear for discharge. Disposition: 01 HOME / SELF CARE / HOMELESS Final Discharge Diagnosis (Prints w/discharge instructions): Acute coronary syndromeruled out, GERD, nausea and vomiting, gastroenteritis, hypokalemia, [id number] type 2 diabetes mellitus, obesity. Time spent for discharge: 45 min Core Measure Documentation - Palliative Care Palliative Care/ Comfort Measures: Not Applicable - Core Measures Any of the following diagnoses?: none Exam - Constitutional Vitals: Temp Pulse Resp BP Pulse Ox 98.2 F 64 15 171/91 97 09/17/21 04:17 09/17/21 04:17 09/17/21 04:09/17/21 04:09/17/21 04:17 General appearance: Present: no acute distress, well-nourished, obese - EENT Eyes: Present: PERRL, EOM intact ENT: hearing intact, clear oral mucosa, dentition normal - Neck Neck: Present: supple, normal ROM - Respiratory Respiratory effort: normal Respiratory: bilateral: CTA - Cardiovascular Rhythm: regular Heart Sounds: Present: S1 & S2 - Extremities Extremities: no ischemia, pulses intact, pulses symmetrical, No edema, normal temperature, normal color, Full ROM Peripheral Pulses: within normal limits - Abdominal General gastrointestinal: Present: soft, tender, non-distended, normal bowel sounds Localized gastrointestinal: tender: epigastric periumbilical Female genitourinary: Present: deferred - Rectal Rectal Exam: deferred - Integumentary Integumentary: Present: clear, warm, dry - Musculoskeletal Musculoskeletal: generalized weakness - Psychiatric Psychiatric: appropriate mood/affect, cooperative - Neurologic Neurologic: CNII-XII intact, moves all extremities - Allied Health Allied health notes reviewed: nursing Plan Activity: advance as tolerated Diet: low salt, diabetic Additional Instructions: Patient is a 71-year-old female past medical history of oer-meyvprf-ikknfnepa type 2 diabetes mellitus, hypertension, GERD who presented to the ED with complaints of chest pain described as burning, nausea, and vomiting which started 1 day prior to presentation. Patient was unable to provide additional information regarding the type of pain when asked further questions. In the ED, the patient was found to be hemodynamically stable. She had negative troponins x2. Her EKG was relatively unremarkable. Patient also underwent CT angio chest that was unremarkable for pulmonary embolism. Cardiology was consulted for further management. Patient underwent myocardial perfusion scan that revealed "normal wall motion with LVEF post vasodilation calculated to be 84%". Patient was initiated on beta-blockade and monitored overnight. Patient continued to describe burning chest pain in the epigastric region significant for GERD. The patient's PPI was increased to twice daily and she was started on antiemetics for her nausea and vomiting. Patient was also initiated on a scopolamine patch and Phenergan suppositories with moderate relief. Patient was found to be negative for coronavirus. Patient was counseled about the high likelihood that she has gastroenteritis in addition to substantial GERD. Patient was counseled to continue taking antiemetics and attempting a p.o. intake. Patient is medically clear for discharge. Care Plan Goals: Patient is medically cleared for discharge. Assessment: Patient is a 71-year-old female past medical history of [id number]-ixvogbpsl type 2 diabetes mellitus, hypertension, GERD who presented to the ED with complaints of chest pain described as burning, nausea, and vomiting which started 1 day prior to presentation. Patient was unable to provide additional information regarding the type of pain when asked further questions. In the ED, the patient was found to be hemodynamically stable. She had negative troponins x2. Her EKG was relatively unremarkable. Patient also underwent CT angio chest that was unremarkable for pulmonary embolism. Cardiology was consulted f or further management. Patient underwent myocardial perfusion scan that revealed "normal wall motion with LVEF post vasodilation calculated to be 84%". Patient was initiated on beta-blockade and monitored overnight. Patient continued to describe burning chest pain in the epigastric region significant for GERD. The patient's PPI was increased to twice daily and she was started on antiemetics for her nausea and vomiting. Patient was also initiated on a scopolamine patch and Phenergan suppositories with moderate relief. Patient was found to be negative for coronavirus. Patient was counseled about the high likelihood that she has gastroenteritis in addition to substantial GERD. Patient was counseled to continue taking antiemetics and attempting a p.o. intake. Patient is medically clear for discharge. Follow up with: PRIMARY CARE, [Primary Care Provider] - 3-5 Days Prescriptions: AtorvaSTATin [Lipitor] 20 mg PO QHS #30 tablet Aspirin EC [Halfprin EC] 81 mg PO QDAY #30 tablet lisinopriL [Lisinopril] 20 mg PO DAILY #30 tab Metoprolol [Lopressor TAB] 50 mg PO BID #60 tablet Omeprazole 40 mg PO BID #60 tab
[2021-09-17] MEDS: PANTOPRAZOLE 40 MG TAB PO SCH (08:00)
[2021-09-17] MEDS: INSULIN LISPRO 100 UNIT/ML SUB-Q SCH (08:27)
[2021-09-17 08:29] VITALS: BP 145/95
[2021-09-17] MEDS ORDERED: PROMETHAZINE 25 MG RECT SUPP PR NR (09:32)
[2021-09-17] MEDS: LISINOPRIL 20 MG TAB PO SCH (10:16)
[2021-09-17] MEDS: ASPIRIN EC 81 MG TAB PO SCH (10:16)
[2021-09-17] MEDS: ENOXAPARIN 40 MG/0.4 ML INJ SUB-Q SCH (10:17)
[2021-09-17] MEDS: METOPROLOL TARTRATE 50 MG TAB PO SCH (10:17)
--- NOTE | 2021-09-21 15:00 | Event Note ---
Date: 09/21/21 Hospitalist was waiting for a call from Dr. Monserrat Garcia between 1:30-3pm about a [id number]. No call was received.
--- NOTE | 2021-09-21 17:37 | Event Note ---
Date: 09/21/21 Hospitalist was called by Dr. Garcia at 4:45pm; however, the hospitalist was not near a computer. The hospitalist called back at 5:33pm, and Dr. Garcia stated that he was not near a computer. Case management has been notified.
== END 2021-09-17 11:00 | disposition home or self-care (01) | DRG 392 ==
LOC: ED 20:17 → 4A 09-15 04:56
PROVIDERS: ADMIT Hospitalist; ATTEND Student in an Organized Health Care Education/Training Program
DX: K21.9 Gastro-esophageal reflux disease without esophagitis (principal); Z20.822 Contact with and (suspected) exposure to COVID-19; K52.9 Noninfective gastroenteritis and colitis, unspecified; E11.9 Type 2 diabetes mellitus without complications; E78.5 Hyperlipidemia, unspecified; E87.6 Hypokalemia; E66.9 Obesity, unspecified; Z71.3 Dietary counseling and surveillance; Z68.32 Body mass index [BMI] 32.0-32.9, adult; Z87.891 Personal history of nicotine dependence; Z83.3 Family history of diabetes mellitus
CPT/HCPCS: 36415; 71275; 78452; 80048; 80053; 82550; 82553; 82805; 82962; 83690; 83880; 84484; 85025; 85379; 93005; 93017; 93306; G0378; Q9967; A9502; C8929; C9113; J1170; J1650; J1815; J2270; J2405; J2785; J3010; J7070; U0003